=== PATIENT | male | born 1955 | race Caucasian/White ===

== ENCOUNTER 2021-08-26 01:45 | Day surgery (SDC) | payer BC, SELFPAY ==
[2021-08-17 09:11] VITALS: BMI 28.0
--- NOTE | 2021-08-25 13:21 | PM.HPGS ---
History of Present Illness History of Present Illness Consent: Risks, benefits, and alternatives have been discussed and questions answered. Patient agrees to proceed with procedure. Chief complaint: hx of colon polyps Narrative: Harley Lozoya Jr. is a 65 year old male Referred for colon cancer screening. he had a polyp removed about 5 years ago Review of Systems Review of Systems: All systems reviewed & are unremarkable except as noted in HPI and below PMFSH Past Medical History Medical History Adhesive capsulitis Anxiety with flying BPH loc w/o ur obs/LUTS Chronic right shoulder pain Dyslipidemia Essential (primary) hypertension History of colon polyps Peyronie's disease Rotator cuff impingement syndrome Type 2 diabetes mellitus without complication, without long-term current use of insulin Vitamin D deficiency Surgical History Surgical History History of right inguinal hernia repair 1999 and 2009 History of tonsillectomy Family History Family History Father Family history of coronary artery disease Other Diabetes mellitus Social History Social History Social History: 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 Smoking packs per day: 0.5 Smoking cigarettes per day: 10.0 Years smoked: 5 Smoking pack-years: 2.50 Smoking status: Former smoker Tobacco type: cigarettes Second hand tobacco smoke exposure: No Smoking end date: 04/25/99 Alcohol intake: current Drinks per week: 6 Alcohol use details: BEERS Substance use: never Substance use type: does not use Spiritual care concerns: No Meds Home Medications and Allergies Home Medications Medication Instructions Recorded Confirmed Type acetaminophen 500 mg tablet 1,000 mg PO ONCE PRN tablet 04/30/19 08/17/21 History blood sugar diagnostic See Rx Instructions .ROUTE 11/05/19 08/17/21 Rx .COMPLEX #100 strip clorazepate dipotassium 7.5 mg 7.5 mg PO BID PRN #30 tablet 12/26/20 08/17/21 Rx tablet tamsulosin 0.4 mg capsule 0.4 mg PO DAILY #90 cap 10/18/21 04/25/22 Rx atorvastatin 10 mg tablet 10 mg PO QHS #90 tablet 05/11/21 08/17/21 Rx finasteride 5 mg tablet 5 mg PO DAILY #90 tablet 07/20/21 08/17/21 Rx dapagliflozin 10 mg tablet 10 mg PO DAILY #90 tablet 08/04/21 08/17/21 Rx fenofibrate 160 mg tablet 160 mg PO DAILY #90 tablet 08/17/21 Rx glyburide-metformin 1 tablet PO BID 08/17/21 08/17/21 History lisinopril 20 1 tablet PO DAILY #90 tablet 08/17/21 Rx mg-hydrochlorothiazide 12.5 mg tablet Allergies Allergy/AdvReac Type Severity Reaction Status Date / Time No Known Allergies Allergy Unknown Verified 08/17/21 09:11 Exam Resp: Auscultation: clear to auscultation bilaterally Cardio: Rate: regular rate Rhythm: regular rhythm GI: GI Palp: Yes Soft to palpation and No Tenderness to palpation present (GI) Assessment and Plan Assessment and plan (1) Colon cancer screening: Code(s): Z12.11 - Encounter for screening for malignant neoplasm of colon Status: Acute Assessment and Plan: Colonoscopy with possible biopsy or polypectomy or cautery or injection of substances.
--- NOTE | 2021-08-25 13:22 | WPDANESEPPF ---
Anes - Initial Pre Proc Eval Procedure: Operation Date: 08/26/21 08:30 Proposed Procedures p Screening Colonoscopy - Michoacano Elena MD Date/Time: 08/25/21 13:22 Surgeon: Michoacano Elena MD Pre Op Diagnosis: hx of colon polyps Patient Data Age: 65 Gender: M Height: 1.75 m Weight: 86 kg Allergies Allergy/AdvReac Type Severity Reaction Status Date / Time No Known Allergies Allergy Unknown Verified 08/26/21 07:11 Home Medications Medication Instructions Recorded Confirmed Type acetaminophen 500 mg tablet 1,000 mg PO ONCE PRN tablet 04/30/19 08/26/21 History blood sugar diagnostic See Rx Instructions .ROUTE 11/05/19 08/26/21 Rx .COMPLEX #100 strip clorazepate dipotassium 7.5 mg 7.5 mg PO BID PRN #30 tablet 12/26/20 08/26/21 Rx tablet tamsulosin 0.4 mg capsule 0.4 mg PO DAILY #90 cap 02/09/21 08/26/21 Rx atorvastatin 10 mg tablet 10 mg PO QHS #90 tablet 05/11/21 08/26/21 Rx finasteride 5 mg tablet 5 mg PO DAILY #90 tablet 07/20/21 08/26/21 Rx dapagliflozin 10 mg tablet 10 mg PO DAILY #90 tablet 08/04/21 08/26/21 Rx fenofibrate 160 mg tablet 160 mg PO DAILY #90 tablet 08/17/21 08/26/21 Rx glyburide-metformin 1 tablet PO BID 08/17/21 08/26/21 History lisinopril 20 1 tablet PO DAILY #90 tablet 08/17/21 08/26/21 Rx mg-hydrochlorothiazide 12.5 mg tablet Patient hx anesthesia problems: none Family hx anesthesia problems: none Results Review: All pre-operative results and documents have been reviewed as part of the pre-operative evaluation. [facility] Past Medical History Medical History Adhesive capsulitis Anxiety with flying BPH loc w/o ur obs/LUTS Chronic right shoulder pain Dyslipidemia Essential (primary) hypertension History of colon polyps Peyronie's disease Rotator cuff impingement syndrome Type 2 diabetes mellitus without complication, without long-term current use of insulin Vitamin D deficiency Surgical History Surgical History History of right inguinal hernia repair 1999 and 2009 History of tonsillectomy Family History Family History Father Family history of coronary artery disease Other Diabetes mellitus Social History Social History Social History: 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. Smoking packs per day: 0.5 Smoking cigarettes per day: 10.0 Years smoked: 5 Smoking pack-years: 2.50 Smoking status: Former smoker Tobacco type: cigarettes Second hand tobacco smoke exposure: No Smoking end date: 04/25/99 Alcohol intake: current Drinks per week: 6 Alcohol use details: BEERS Substance use: never Substance use type: does not use Living arrangements: with family Spiritual care concerns: No Anes - Eval Final PreProcedure Day of Procedure 08/25/21 13:22 Patient weight: overweight Heart: regular rate and rhythm Lungs: clear to auscultation and normal air movement Airway: Mallampati scale class II Neurological: alert and oriented Last oral intake: >/= 8 hours ASA classification: III Emergent: no Anesthetic plan: proceed Anesthesia type and monitoring: general GIVS and standard monitoring Results Review: All pre-operative results and documents have been reviewed as part of the pre-operative evaluation. Informed Consent: The patient's anesthetic plan and its attendant risks and benefits were discussed with the patient/family/POA. Questions were solicited and answers provided to the satisfaction of the patient/family/POA.
[2021-08-26 07:02] VITALS: BP 127/83; PULSE 77; RESP 18; TEMP 36.1; O2SAT 99; BMI 27.3
[2021-08-26] MEDS: LACTATED RINGERS 1,000 ML 150 ML IV CONT (07:26)
[2021-08-26 07:27] LABS: Glucose Point of Care 144 mg/dl (65-105)
[2021-08-26 08:32] VITALS: BP 105/68; PULSE 68; RESP 17; O2SAT 99
[2021-08-26 08:42] VITALS: BP 106/59; PULSE 69; RESP 18; O2SAT 100
[2021-08-26 08:52] VITALS: BP 127/74; PULSE 67; RESP 15; O2SAT 100
== END 2021-08-26 09:07 | disposition home or self-care (01) ==
PROVIDERS: PCP Family Medicine; Visit Provider Internal Medicine Gastroenterology
PROC: 0DJD8ZZ Inspection of Lower Intestinal Tract, Via Natural or Artificial Opening Endoscopic (ICD-10-PCS; CPT 45378; principal; 2021-08-26 08:30)
DX: Z12.11 Encounter for screening for malignant neoplasm of colon (principal); D12.5 Benign neoplasm of sigmoid colon; K62.1 Rectal polyp; I10 Essential (primary) hypertension; E78.5 Hyperlipidemia, unspecified; E11.9 Type 2 diabetes mellitus without complications; E55.9 Vitamin D deficiency, unspecified; N48.6 Induration penis plastica; N40.0 Benign prostatic hyperplasia without lower urinary tract symptoms; M75.40 Impingement syndrome of unspecified shoulder; Z87.891 Personal history of nicotine dependence
CPT/HCPCS: 45385; 82948; 88305; J2704; J7120

== ENCOUNTER 2023-01-13 09:28 | Outpatient (CLI) | payer BC, OTHER, SELFPAY ==
[2023-01-13 13:54] LABS: Basophils Absolute Auto 0.1 K/mm3 (0.0-0.1); Eosinophils Absolute Auto 0.2 K/mm3 (0-0.3); Eosinophils Percent Auto 1.9 % (0-4.4); Hematocrit 47.4 % (42.0-52.0); Hemoglobin 15.3 g/dL (14.0-18.0); Immature Granulocyte Absolute 0.04 K/mm3 (0.00-0.031); Immature Granulocyte Percent A 0.5 % (0-0.5); Lymphocytes Absolute Auto 2.65 K/mm3 (0.9-3.2); Lymphocytes Percent Auto 33.5 % (18.3-44.2); Mean Corpuscular HGB Conc 32.3 g/dl (32-36); Mean Corpuscular Hemoglobin 30.8 pg (26-34); Mean Corpuscular Volume 95.6 fl (80-100); Mean Platelet Volume 9.7 fl (7.4-10.4); Monocytes Absolute Auto 0.7 K/mm3 (0.1-0.6); Monocytes Percent Auto 9.2 % (2.6-8.5); Neutrophils Absolute Auto 4.3 K/mm3 (1.3-6.7); Neutrophils Percent Auto 53.9 % (45.5-73.1); Platelet Count Result 371 k/mm3 (150-375); Red Blood Count 4.96 M/mm3 (4.6-6.20); Red Cell Distribution Width 13.8 % (11.5-14.5); White Blood Count 7.9 K/mm3 (4.5-10.0)
[2023-01-13 13:58] LABS: Alanine Aminotransferase 32 U/L (6-50); Albumin Level 4.8 g/dL (3.5-5.1); Alkaline Phosphatase 73 U/L (38-126); Anion Gap 9 mmol/L (8-16); Aspartate Amino Transferase 42 U/L (17-59); Bilirubin,Total 0.5 mg/dL (0.2-1.3); Blood Urea Nitrogen 18 mg/dL (9-20); Calcium 9.6 mg/dL (8.4-10.2); Carbon Dioxide 29 mmol/L (22-30); Chloride 99 mmol/L (98-107); Cholesterol 168 mg/dL (0-200); Estimated Glomerular Filt Rate > 60; Glucose 116 mg/dL (65-110); HDL Direct 33 mg/dL; Potassium 4.4 mmol/L (3.4-5.0); Sodium 137 mmol/L (137-145); Triglycerides 285 mg/dL (<150)
[2023-01-13 14:09] LABS: LDL Cholesterol Direct 90 mg/dL
[2023-01-13 18:44] LABS: Hemoglobin A1C 7.2 % (<5.7)
[2023-01-13 19:16] LABS: Vitamin D 25 Hydroxy 30.9 ng/mL
[2023-01-14 18:05] LABS: Prostate Specific Antigen 0.9 ng/mL (< OR = 4.0)
== END 2023-01-13 09:29 | disposition home or self-care (01) ==
PROVIDERS: PCP Family Medicine; Visit Provider Family Medicine
DX: E78.5 Hyperlipidemia, unspecified (principal); E11.9 Type 2 diabetes mellitus without complications; E55.9 Vitamin D deficiency, unspecified; Z12.5 Encounter for screening for malignant neoplasm of prostate; I10 Essential (primary) hypertension
CPT/HCPCS: 36415; 80053; 80061; 82306; 82607; 83036; 84153; 84443; 85025; G0103

== ENCOUNTER 2023-07-12 08:59 | Outpatient (CLI) | payer OTHER, SELFPAY ==
[2023-07-12 13:47] LABS: Alanine Aminotransferase 34 U/L (6-50); Albumin Level 4.7 g/dL (3.5-5.1); Alkaline Phosphatase 78 U/L (38-126); Anion Gap 8 mmol/L (8-16); Aspartate Amino Transferase 55 U/L (17-59); Bilirubin,Total 0.4 mg/dL (0.2-1.3); Blood Urea Nitrogen 17 mg/dL (9-20); Calcium 9.8 mg/dL (8.4-10.2); Carbon Dioxide 23 mmol/L (22-30); Chloride 105 mmol/L (98-107); Estimated Glomerular Filt Rate > 60; Glucose 134 mg/dL (65-110); Potassium 4.2 mmol/L (3.4-5.0); Sodium 136 mmol/L (137-145)
[2023-07-12 16:37] LABS: Hemoglobin A1C 8.2 % (<5.7)
== END 2023-07-12 09:00 | disposition home or self-care (01) ==
LOC: ANHGOSHLAB 09:00
PROVIDERS: PCP Family Medicine; Visit Provider Family Medicine
DX: I10 Essential (primary) hypertension (principal); E11.9 Type 2 diabetes mellitus without complications
CPT/HCPCS: 36415; 80053; 83036

== ENCOUNTER 2023-09-26 06:57 | Outpatient (CLI) | payer OTHER, SELFPAY ==
--- NOTE | ~2023-09-26 | US_ITS ---
EXAMINATION: US aorta [facility] scrn DATE: 09/26/2023 07:46 INDICATION: Abdominal aortic aneurysm screening. TECHNIQUE: Grayscale, color Doppler, and pulsed Doppler images of the aorta and common iliac arteries were obtained. COMPARISON: None. FINDINGS: The aorta is normal in caliber and demonstrates atherosclerosis. The right common iliac artery is nor mal in caliber. The left common iliac artery is normal in caliber. IMPRESSION: 1. Aortic atherosclerosis. No abdominal aortic aneurysm. Reviewed, dictated and finalized at location A.
== END 2023-09-26 06:58 | disposition home or self-care (01) ==
PROVIDERS: PCP Family Medicine; Visit Provider Family Medicine
DX: Z13.6 Encounter for screening for cardiovascular disorders (principal); I70.0 Atherosclerosis of aorta; Z87.891 Personal history of nicotine dependence
CPT/HCPCS: 76706

== ENCOUNTER 2024-08-22 09:03 | Outpatient (CLI) | payer OTHER, SELFPAY ==
--- OUTSIDE RECORDS SUMMARY | 2024-08-22 09:35 | XMS_ITS | Continuity of Care Document ---
Author Organization [facility] Address [address] [place] [address] [place] [address] Phone Care Team Providers Care Documentation Liaison Name Role Phone Ke Roberts Unavailable Unavailable Procedures Procedure Date Post-op Follow-up Visit Remove Cataract, Insert Lens Office/outpatient Visit, Est Echo Exam Of Eye-Professional 8 Post-op Follow-up Visit Post-op Follow-up Visit Remove Cataract, Insert Lens Eye Exam, New Patient Echo Exam Of Eye Advance Directives Directive Yes / No Effective Date File Name No Information Encounters Encounter Description Practice Location Reason(s) For Visit Diagnoses Date Provider Providers Copied on Encounter [facility], [address] [place], [place] [address], [place], [place], [id number], tel:[phone] [facility] No Information Jul-0 2200 8 Alejandra Dempsey. [address] [facility] [address], [address], [place], [address], [place]. tel:[phone] Referring Provider: Angela Pringle OD, [address] [place], [address]. tel:[phone] [facility], [address] [place] [address] [address], [place], [place], [id number], tel:[phone] [facility] No Information Apr-0 1-200 8 Alejandra Dempsey. [address] [facility] [address], [address], [place], [address], . tel:[phone] Referring Provider: Angela Pringle OD, [address] [place] [address], [address]. tel:[phone] Office/outpat ient Visit, [facility], [address] [place] [address] [address], [place], [place], [id number], tel:[phone] [facility] No Information Mar-0 3-200 8 Doisy Edward. [address] [facility] [address] , [address], [place], [place], [facility], . tel:[phone] Referring Provider: Angela Pringle OD, [address] [place] [address], [facility]. tel:[phone] [facility], [address] [place] [address] [address], [place], [place], [id number], tel:[phone] [facility] No Information Oct-0 5-200 7 Doisy Edward. [address] [facility] [address], [address], [place], [place], [facility], . tel:[phone] Referring Provider: Angela Pringle OD, [address] [place] [address], [address]. tel:[phone] [facility], [address] [place] [address] [address], [place], [place], [id number], tel:[phone] [facility] No Information Sep-2 8-200 7 Doisy Edward. [address] [facility] [address], [address], [place], [place], [facility], . tel:[phone] Referring Provider: Angela Pringle OD, [address] [place] [address], [address]. tel:[phone] [facility], [address] [place] [address] [address], [place], [place], [id number], tel:[phone] [facility] No Information Sep-2 7-200 7 Doisy Edward. [address] [facility] , [address], [place], [address], [place]. tel:[phone] Referring Provider: Angela Pringle OD, [address] [facility], [place], [address]. tel:[phone] [facility], [address] [facility], [place], [place], [id number], [place] tel:[phone] [facility] No Information 200 7 Alejandra Dempsey. [address] [facility] , [address], [place], [address], [place]. tel:[phone] Referring Provider: Fabián Pringle OD, [address] [facility], [place], [address]. tel:[phone] Family History Family Member Type Diagnosis Age At Onset No Information Payers Payer name Insurance type Covered republican ID Authoriza tion(s) No Information Social History Type Description Quantity Date Captured Comments Sex Male Smoking Status No Information Chief Complaint And Reason For Visit No Information Reason For Referral Reason For Referral No Information History Of Present Illness Encounter Date Complaint History Of Prese nt Illness No Information Functional Status Date Functional Assessmen t No Information Instructions Date Instruction Additional Infor mation No Information Assessments Type Assessment Date No Information Patient Care Teams Name Effective Dates (start - stop) Status Members No Information
[2024-08-22 21:12] LABS: Alanine Aminotransferase 24 U/L (6-50); Albumin Level 4.6 g/dL (3.5-5.1); Alkaline Phosphatase 68 U/L (38-126); Anion Gap 10 mmol/L (4-12); Aspartate Amino Transferase 61 U/L (17-59); Bilirubin,Total 0.4 mg/dL (0.2-1.3); Blood Urea Nitrogen 13 mg/dL (9-20); Calcium 9.3 mg/dL (8.4-10.2); Carbon Dioxide 24 mmol/L (22-30); Chloride 104 mmol/L (98-107); Estimated Glomerular Filt Rate > 60; Glucose 107 mg/dL (65-110); Sodium 138 mmol/L (137-145)
[2024-08-22 22:20] LABS: Hemoglobin A1C 7.4 % (<5.7)
== END 2024-08-22 09:04 | disposition home or self-care (01) ==
PROVIDERS: PCP Family Medicine; Visit Provider Family Medicine
DX: I10 Essential (primary) hypertension (principal); E11.9 Type 2 diabetes mellitus without complications
CPT/HCPCS: 36415; 80053; 83036